=== PATIENT | male | born 1990 | race Caucasian/White ===

== ENCOUNTER 2017-03-08 09:33 | Emergency (ER) | payer MEDICAID ==
[~2017-03-08] VITALS: Ht 172.7 cm; Wt 79.4 kg
[2017-03-08 09:48] VITALS: BP 128/71; PULSE 82; RESP 16; TEMP 97; O2SAT 99
--- NOTE | 2017-03-08 09:51 | NUR ---
Patient to ER bed 2 to gown for evaluation. Side rails up. Report given to Soy LONDON.
--- NOTE | 2017-03-08 09:51 | NUR ---
Pt report received from LITA Harmon. Pt c/o productive cough with yellow sputum, sore throat, headache x 2 days. Respirations even and non-labored, BBS clear.
--- NOTE | 2017-03-08 10:00 | NUR ---
Dr. Rivera at bedside to assess pt.
[2017-03-08 10:40] VITALS: BP 124/76; PULSE 80; RESP 18; TEMP 97.2; O2SAT 100
--- NOTE | 2017-03-08 10:40 | NUR ---
Patient given written and verbal discharge instructions and verbalizes understanding. ER MD discussed with patient the results and treatment provided. GPatient in stable condition. ID arm band removed. Rx of Tylenol and Robitussin DM given. Patient educated on pain management and to follow up with PMD. Pain Scale 0/10. Opportunity for questions provided and answered.
== END 2017-03-08 10:40 | disposition home or self-care (01) ==
LOC: SED 09:33
DX: J00 Acute nasopharyngitis [common cold] (principal); R05 Cough; F17.200 Nicotine dependence, unspecified, uncomplicated
CPT/HCPCS: 99282

== ENCOUNTER 2017-12-17 15:18 | Emergency (ER) | payer MEDICAID ==
[~2017-12-17] VITALS: Ht 172.7 cm; Wt 78.5 kg
[2017-12-17 15:18] VITALS: BP_SYST 150
[2017-12-17] MEDS ORDERED: ACETAMINOPHEN 325 MG TABLET PO ONE (15:30)
[2017-12-17] MEDS ORDERED: IBUPROFEN 600 MG TABLET PO ONE (15:30)
[2017-12-17 15:57] LABS: BASOPHILS % (AUTO) 0.6 % (0.0-2.0); EOSINOPHILS # (AUTO) 0.1 K/uL (0.0-0.4); EOSINOPHILS % (AUTO) 1.8 % (0.0-4.0); HEMATOCRIT 50.1 % (36-54); HEMOGLOBIN 16.9 g/dL (14.0-18.0); LYMPHOCYTES # (AUTO) 2.7 K/uL (1.0-5.5); LYMPHOCYTES % (AUTO) 38.5 % (20.5-51.5); MEAN CORPUSCULAR HEMOGLOBIN 32 pg (27-31); MEAN CORPUSCULAR HGB CONC 34 % (32-36); MEAN CORPUSCULAR VOLUME 94 fL (79.0-98.0); MONOCYTES # (AUTO) 0.4 K/uL (0.0-1.0); MONOCYTES % (AUTO) 6.1 % (1.7-9.3); NEUTROPHILS # (AUTO) 3.8 K/uL (1.8-7.7); PLATELET COUNT (AUTO) 248 K/uL (130-430); RED BLOOD CELL COUNT(AUTO) 5.35 MIL/uL (4.2-6.2); RED CELL DISTRIBUTION WIDTH 11.6 % (9.0-15.0)
[2017-12-17 16:10] LABS: CALCIUM 9.4 mg/dL (8.4-11.0); CREATININE 0.75 mg/dL (0.55-1.30); POTASSIUM 3.3 mmol/L (3.5-5.1)
[2017-12-17 16:16] LABS: BILIRUBIN,URINE NEGATIVE (NEGATIVE); BLOOD, URINE NEGATIVE (NEGATIVE); CLARITY/URINE CLEAR (CLEAR); COLOR,URINE YELLOW (YELLOW); GLUCOSE,URINE NEGATIVE (NEGATIVE); KETONES,URINE NEGATIVE (NEGATIVE); LEUKOCYTE ESTERASE ,URINE NEGATIVE (NEGATIVE); NITRITE, URINE NEGATIVE (NEGATIVE); PH,URINE 7.5 (5.0-8.0); PROTEIN URINE NEGATIVE (NEGATIVE); UROBILINOGEN,URINE 0.2 (0.2-1.0)
[2017-12-17 16:31] LABS: BARBITURATE, URINE NEGATIVE (NEG <=200); BENZODIAZEPINE, URINE NEGATIVE (NEG <=150); CANNABINOID, URINE NEGATIVE (NEG <=50); COCAINE, URINE NEGATIVE (NEG <=150); METHAMPHETAMINES SCREEN,URINE NEGATIVE (NEG <=500); OPIATE, URINE NEGATIVE (NEG <=100); PHENCYCLIDINE SCREEN,URINE NEGATIVE (NEG <=25); UR TRICYCLIC ANTIDEPRESSANTS NEGATIVE (NEG <=300); URINE AMPHETAMINE NEGATIVE (NEG <=500); URINE METHADONE NEGATIVE (NEG <=200); URINE OXYCODONE SCREEN NEGATIVE (NEG <=100); URINE PROPOXYPHENE SCREEN NEGATIVE (NEG <=300)
[2017-12-17] MEDS ORDERED: POTASSIUM CHLORIDE 20 MEQ TAB.PRT.SR PO ONE (16:45)
[2017-12-17 17:24] VITALS: BP_SYST 141
== END 2017-12-17 17:24 | disposition home or self-care (01) ==
LOC: SED 15:18
DX: G93.0 Cerebral cysts (principal)
CPT/HCPCS: 36415; 70450-TC; 80048; 80307; 81003; 85025; 99285

== ENCOUNTER 2020-12-10 11:29 | Emergency (ER) | payer MEDICAID, SELFPAY ==
[~2020-12-10] VITALS: Ht 172.7 cm; Wt 74.8 kg
[2020-12-10 11:30] VITALS: BP_SYST 123
== END 2020-12-10 12:41 | disposition left against medical advice (07) ==
LOC: SED 11:29
DX: R10.9 Unspecified abdominal pain (principal); Z53.21 Procedure and treatment not carried out due to patient leaving prior to being seen by health care provider